=== PATIENT | male | born 1970 | race African-American/Black ===

== ENCOUNTER → 2017-07-31 | Outpatient (CLI) | payer OTHER, MEDICAID ==
[~2017-07-31] MED LIST: ALBUTEROL2.5 MG/31 INH; APAP500 PO; ASPIR 8181 MG PO; ATORVASTATIN CA40 MG PO; BRILINTA90 MG PO; CYMBALTA20 MG PO; ETODOLAC500 MG PO; FLEXERIL PO; HYDROCODON-ACE1 EACH PO; LEVAQUIN 500 M500 M2 PO; LIPITOR20 MG PO; LISINOPRIL2.5 M1 PO; LISINOPRIL20 MG PO; LYRICA 50 MG50 MG PO; LYRICA25 MG PO; MAGIC MOUTHWASH SWISH&SPIT; METFORMIN HCL500 MG PO; METOPROLOL TART25 MG PO; NAPROSYN500 MG PO; NEURONTIN 300300 M1 PO; NITROSTAT0.4 M1 SUBLING; NORCO 5-325 TA1 EACH PO; NORVASC 5 MG TAB5 MG PO; OXYCODONE HCL 55 MG PO; OXYCONTIN15 MG PO; OXYCONTIN20 M1 PO; PERCOCET 10-321 EAC1 PO; PERCOCET 5-3251 EACH PO; PREDNISONE 10 M10 M1 PO; PRILOSEC 20 MG20 MG PO; PROTONIX40 M1 PO; VENTOLIN HFA 1818 GM INH; ZANAFLEX4 MG PO; ZOLOFT100 MG PO
== END ==
LOC: M.RAD 11:00
DX: M54.12 Radiculopathy, cervical region (principal); M54.14 Radiculopathy, thoracic region; M46.02 Spinal enthesopathy, cervical region; M25.512 Pain in left shoulder; R07.89 Other chest pain

== ENCOUNTER 2017-10-27 01:52 | Inpatient (IN) | payer OTHER, MEDICAID ==
[2017-10-27] VITALS (8 sets, daily range): BP systolic 115–145; BP diastolic 64–85
[~2017-10-27] VITALS: Ht 185.4 cm; Wt 118.1 kg
[~2017-10-27 01:52] MED LIST changes: -ALBUTEROL2.5 MG/31 INH; -CYMBALTA20 MG PO; -LEVAQUIN 500 M500 M2 PO; -LISINOPRIL20 MG PO; -METFORMIN HCL500 MG PO; -OXYCONTIN20 M1 PO; -PERCOCET 10-321 EAC1 PO; -PREDNISONE 10 M10 M1 PO; -PROTONIX40 M1 PO; -VENTOLIN HFA 1818 GM INH
[2017-10-27 02:20] LABS: ABSOLUTE BASOPHILS 0.2 thou/uL (0.0-0.2); ABSOLUTE EOSINOPHILS 0.3 thou/uL (0.0-0.7); ABSOLUTE LYMPHOCYTES 3.2 thou/uL (0.8-5.3); ABSOLUTE MONOCYTES 0.8 thou/uL (0.0-1.2); ABSOLUTE NEUTROPHILS 14.8 thou/uL (1.6-8.1); BASOPHILS 0.8 %; EOSINOPHILS 1.6 %; HEMATOCRIT 45.9 % (42.0-52.0); HEMOGLOBIN 15.7 gm/dL (14.0-18.0); LYMPHOCYTES 16.6 %; MCH 29.4 pg (26.0-34.0); MCHC 34.3 g/dL (28.0-37.0); MCV 85.8 fL (80.0-100.0); MPV 9.1 fl. (7.2-11.1); NUCLEATED RBCS 0 /100WBC; PLATELET COUNT* 196 thou/uL (150-400); RBC 5.34 mil/uL (4.50-6.00); RDW-CV 15.2 % (10.5-14.5); WBC 19.3 thou/uL (4.0-11.0)
[2017-10-27 02:46] LABS: ANION GAP 10 mmol/L (7-16); BUN 7 mg/dL (7-18); CALCIUM 9.8 mg/dL (8.5-10.1); CHLORIDE 98 mmol/L (98-107); CO2 28 mmol/L (21-32); CREATININE 1.1 mg/dL (0.6-1.3); GLUCOSE 413 mg/dL (70-99); POTASSIUM 4.1 mmol/L (3.5-5.1); SODIUM 136 mmol/L (136-145)
[2017-10-27 03:00] LABS: ALBUMIN 3.8 g/dL (3.4-5.0); ALKALINE PHOSPHATASE 145 U/L (46-116); LIPASE 90 U/L (73-393); MAGNESIUM 1.8 mg/dL (1.8-2.4); NT-PRO BRAIN NAT PEPTIDE 30 pg/mL (<300); SGOT 9 U/L (15-37); SGPT 25 U/L (30-65); TOTAL BILIRUBIN 0.6 mg/dL (<0.1-1.0); TOTAL PROTEIN 7.4 g/dL (6.4-8.2); TROPONIN-I LEVEL <0.06 ng/mL (<0.06)
[2017-10-27 05:49] LABS: URINE BILIRUBIN NEGATIVE (Negative); URINE BLOOD NEGATIVE (Negative); URINE CLARITY CLEAR; URINE COLOR YELLOW; URINE GLUCOSE-RANDOM 3+ (Negative); URINE KETONES 2+ (Negative); URINE LEUKOCYTES-REFLEX NEGATIVE (Negative); URINE NITRITE-REFLEX NEGATIVE (Negative); URINE PROTEIN NEGATIVE (Negative); URINE SPECIFIC GRAVITY <= 1.005 (1.005-1.030); URINE UROBILINOGEN 0.2 E.U./dl (0.2-1.0)
--- NOTE | 2017-10-27 11:00 | NUR ---
DR SEVILLA PAGED RE ELEVATED HIGH BG. NO ORDERS RECEIVED AT THIS TIME
[2017-10-27] MEDS ORDERED: LISINOPRIL20 MG PO (12:10)
[2017-10-27] MEDS ORDERED: PERCOCET 10-321 EAC1 PO (12:10)
[2017-10-27] MEDS ORDERED: CYMBALTA20 MG PO (12:10)
[2017-10-27] MEDS ORDERED: FLEXERIL PO (12:10)
--- NOTE | 2017-10-27 13:08 | NUR ---
Pt came down to pre-op for Appendectomy and blood sugar is 310. Insulin Moderate sliding scale was reviewed and Insulin 16 units given in left arm based off standing order.
--- NOTE | 2017-10-27 14:48 | 2DMMODE ---
[place] [address] 2 D/M-MODE ECHOCARDIOGRAM Name: DAVY GIBSON Room: [address] IN [facility]#: [id number] Admission: 10/27/17 Attend Phys: Kalina Duque, Discharge: Date of : 72 Date of Service: 10/27/17 1448 Report #: [id number] THIS REPORT FOR: //name// APPROVED REPORT Study performed: 10/27/2017 09:30:52 EXAM: Comprehensive 2D, Doppler, and color-flow Echocardiogram Patient Location: In-Patient Room #: [facility] Status: routine BSA: 2.41 HR: 80 bpm BP: 115/67 mmHg Rhythm: NSR Other Information Study Quality: Good Indications Pre-Op CAD 2D Dimensions LVEF(%): 58.03 (>50%) IVSd: 10.90 (7-11mm) LVOT Diam: 19.66 (18-24mm) LVDd: 52.34 mm PWd: 10.22 (7-11mm) Ascending Ao: 33.05 (22-36mm) LVDs: 36.20 (25-40mm) Aortic Root: 32.82 mm Brown's LVEF: 58.03 % Volumes Left Atrial Volume (Systole) LA ESV Index: 19.60 mL/m2 Aortic Valve AoV Peak Dexter.: 1.69 m/s AO Peak Gr.: 11.38 mmHg LVOT Max P.66 mmHg AO Mean Gr.: 5.84 mmHg LVOT Mean P.22 mmHg LVOT Max V: 1.38 m/s AO V2 VTI: 29.52 cm LVOT Mean V: 0.80 m/s CANDI (VTI): 2.48 cm2 LVOT V1 VTI: 24.10 [place] [address] 2 D/M-MODE ECHOCARDIOGRAM Name: DAVY GIBSON Room: [address] IN .R.#: [id number] Admission: 10/27/17 Attend Phys: Kalina Duque, Discharge: Date of : 72 Date of Service: 10/27/17 1448 Report #: [id number] E/A Ratio: 0.85 MV Decel. Time: 217.55 ms MV E Max Dexter.: 0.80 m/s MV PHT: 63.09 ms MVA (PHT): 3.49 cm2 TDI E/Lateral E': 8.89 E/Medial E': 7.27 Medial E' Dexter.: 0.11 m/s Lateral E' Dexter.: 0.09 m/s Pulmonary Valve PV Peak Dexter.: 0.96 m/s PV Peak Gr.: 3.66 mmHg Tricuspid Valve TR Peak Gr.: 23.03 mmHg RVSP: 28.00 mmHg Left Ventricle The left ventricle is normal size. There is normal LV segmental wall motion. There is normal left ventricular wall thickness. Left ventricular systolic function is normal. The left ventricular ejection fraction is within the normal range. LVEF is 60%. Grade I - abnormal relaxation pattern. Right Ventricle The right ventricle is normal size. The right ventricular systolic function is normal. Atria The left atrium size is normal. The right atrium size is normal. Aortic Valve The aortic valve is normal in structure. No aortic regurgitation is present. There is no aortic valvular stenosis. Mitral Valve The mitral valve is normal in structure. There is no mitral valve regurgitation noted. No evidence of mitral valve stenosis. Tricuspid Valve The tricuspid valve is normal in structure. Trace tricuspid regurgitation. The RVSP is ____28___ mmHg. Pulmonic Valve The pulmonary valve is normal in structure[place] [address] 2 D/M-MODE ECHOCARDIOGRAM Name: GIBSONDAVY Room: [address] IN M.R.#: [id number] Admission: 10/27/17 Attend Phys: Kalina Duque, Discharge: Date of : 72 Date of Service: 10/27/17 1448 Report #: [id number] regurgitation. Great Vessels The aortic root is normal in size. IVC is normal in size and collapses with >50% inspiration Pericardium There is no pericardial effusion. <Conclusion> The left ventricle is normal size. There is normal left ventricular wall thickness. Left ventricular systolic function is normal. The left ventricular ejection fraction is within the normal range. LVEF is 60%. Grade I - abnormal relaxation pattern. The right ventricle is normal size. The left atrium size is normal. The aortic valve is normal in structure. The mitral valve is normal in structure. The tricuspid valve is normal in structure. Trace tricuspid regurgitation. The RVSP is ____28___ mmHg. IVC is normal in size and collapses with >50% inspiration There is no pericardial effusion. There is normal LV segmental wall motion. <ELECTRONICALLY SIGNED> By: Dayo Moore MD, FACC 10/27/17 1448 1448 1448 Dayo Moore MD, FACC /INF
--- NOTE | 2017-10-27 16:40 | NUR ---
REPORT GIVEN TO ANGE ON . PT'S AND BELONGINGS TAKEN TO ROOM 313
--- NOTE | 2017-10-27 17:54 | EKG ---
[place] [address] ELECTROCARDIOGRAM REPORT Name: GIBSONDAVY Room: [address] ADM IN M.R.#: [id number] Admission: 10/27/17 Attend Phys: Kalina Duque MD Discharge: Date of : 72 Report #: [id number] THIS REPORT FOR: //name// [facility] ED Test Date: 2017-10-27 Test Time: 01:59:27 Pat Name: DAVY GIBSON Department: Room: [facility] Gender: M Food Handler: BD : 1970 Requested By: Ede Szymanski Order Number: [id number] MD: Hamilton Jarvis Measurements Intervals [place] Rate: 78 P: 15 WA: 132 QRS: -8 QRSD: 102 T: 3 QT: 384 QTc: 438 Interpretive Statements Sinus rhythm Compared to ECG 05/09/2016 08:17:22 T-wave abnormality no longer present Electronically Signed On 10-27-2017 17:54:03 CDT by Hamilton Jarvis [email or web address] <ELECTRONICALLY SIGNED> By: Hamilton Jarvis MD, [facility] 10/27/17 1754 0159 0159 Hamilton Jarvis MD, [facility] /EPI
--- NOTE | 2017-10-27 17:54 | EKG ---
[place] [address] ELECTROCARDIOGRAM REPORT Name: GIBSONDAVY Room: [address] ADM IN M.R.#: [id number] Admission: 10/27/17 Attend Phys: Kalina Duque MD Discharge: Date of : 72 Report #: [id number] THIS REPORT FOR: //name// [facility] ED Test Date: 2017-10-27 Test Time: 05:06:27 Pat Name: DAVY GIBSON Department: Room: [facility] Gender: M Cmm Inspector: BD : 1970 Requested By: Ede Szymanski Order Number: [id number] MD: Hamilton aJrvis Measurements Intervals [place] Rate: 83 P: 52 TN: 132 QRS: -2 QRSD: 99 T: 1 QT: 374 QTc: 440 Interpretive Statements Sinus rhythm Probable left atrial enlargement Compared to ECG 05/09/2016 08:17:22 T-wave abnormality no longer present Electronically Signed On 10-27-2017 17:54:40 CDT by Hamilton Jarvis [email or web address] <ELECTRONICALLY SIGNED> By: Hamilton Jarvis MD, [facility] 10/27/17 1754 0506 0506 Hamilton Jarvis MD, [facility] /EPI
--- NOTE | 2017-10-27 18:25 | NUR ---
PT ADMITTED TO ROOM 313 THIS AFTERNOON, CAPNGRAPHY IN PLACE, ON 2LO2NC, VSS, DISCOMFORT TO ABDOMEN MANAGED WELL WITH IV AND ORAL PAIN MEDICATION, FREDDY ORAL FLUIDS WELL, NS INFUSING AT 100/HR VIA 20G LAC, DSGS TO ABD FROM LAP APPY C/D/I. ALFARO WITHOUT DIFF, FAMILY AT BEDSIDE, CALL LIGHT IN REACH, ORDERS REVIEWED. PLAN IS TO DISCHARGE TO HOME WHEN STABLE, POSSIBLY TOMORROW. PROGRESSING WELL TOWARD GOALS, CONT POC.
[2017-10-28 02:12] LABS: GLYCOHEMOGLOBIN (HGB A1C) 11.5 % (4.8-5.6)
[2017-10-28 03:42] VITALS: BP 127/76
--- NOTE | 2017-10-28 05:13 | NUR ---
PATIENT WITH SURGICAL DSG C/D/I ON ABDOMEN. PT VOIDS PER URINAL. PT WITH CAPNO PLUS 2 LITERS PER NC. PT C/O FENTANYL 50MCG IV NOT HOLDING PAIN; INCREASE TO 100MCG Q2H ORDERED. PT ABLE TO REST AFTER RECEIVING THIS. PT WITH BLOOD SUGAR AT 2100 OF 179; PT HAD BEEN NPO ALL DAY AND HAD ONE CUP OF BROTH. PT DID NOT WANT INSULIN. FLUIDS INFUSING PER DR ORDER. AT BEDSIDE. FREQUENTLY USED ITEMS AND CALL LIGHT WITHIN REACH. SIDERAILS UPX3. WILL CONTINUE TO MONITOR.
[2017-10-28 07:30] VITALS: BP 128/78
[2017-10-28 09:51] VITALS: BP 128/78
--- NOTE | 2017-10-28 10:47 | NUR ---
CM SPOKE TO THE PATIENT TO DISCUSS HOME SITUATION, DISCHARGE PLANNING, AND TO INFORM OF THE ROLE OF CM. PATIENT ALERT, ORIENTED, AND INDEPENDENT WITH ADL'S. PATIENT RESIDES AT HOME WITH SPOUSE AND SHE IS AT THE BEDSIDE. PATIENT USES A WALKER AND CANE FOR MOBILITY. PATIENT HAS NO HX OF HH OR SNF. PATIENT AND SPOUSE INFORMS THAT THEY WOULD LIKE HH AT D/C TO ASSIST WITH NEW DIAGNOSIS OF DIABETES AND MANAGEMENT. PATIENT REQUEST [facility]. CM SPOKE TO NATALI AT [facility] AND SHE INFORMS THAT [facility] WILL RETURN CALL TO INFORM IF THEY ARE IN NETWORK WITH THE PATIENTS INSURANCE. CM WILL REMAIN AVIALABLE TO ASSIST AND FOLLOW NEEDED.
[2017-10-28 15:52] VITALS: BP 120/70
--- NOTE | 2017-10-28 16:29 | NUR ---
PATIENT GIVEN DIABETIC EDUCATION THIS AM AND GLUCOSE MONITOR TEACHING. INSULIN GIVEN WITH MEALS WHEN REQUIRED. DIRECTOR OF CONSULTING SERVICES HERE THIS AFTERNOON FOR DIET TEACHING. PATIENT UPSET THIS AM ABOUT PATIENT DISCHARGE ORDERS. PATIENT ADVOCATE NOTIFIED AND DID COME SEE PATIENT. CARDIOLOGY NURSE HERE THIS AM AND PATIENT TO WAIT FOR DR. PALACIOS TO ROUND BEFORE DISCHARGE. OK WITH CARDIOLOGY AFTER ROUNDING TO DISCHARGE. PATIENT AND PATIENT STATED THEY WANTED PATIENT TO STAY ANOTHER NIGHT DUE TO PAIN NOT BEING CONTROLLED. PATIENT STATED TO DOCTORS AND OTHER STAFF MEMBERS ROUNDING ON PATIENT THAT HIS PAIN WAS "OUT OF CONTROL" AFTER MEDICATION GIVEN. THIS NURSE WOULD ROUND ON PATIENT AND ASK FOR PAIN TO BE RATED AND PATIENT STATED A 5/10 AND THAT PAIN AT THAT LEVEL WAS TOLERABLE FOR HIM AND REFUSED ANY OTHER PAIN MEDICATIONS OFFERED AT THAT TIME. PATIENT NOTED TO BE SLEEPING THIS AFTERNOON FOR APPROX 2 HOURS. IV SL. UP AD LEIDA.
[2017-10-28 21:35] VITALS: BP 129/84
[2017-10-29 05:12] LABS: ABSOLUTE BASOPHILS 0.1 thou/uL (0.0-0.2); ABSOLUTE EOSINOPHILS 0.3 thou/uL (0.0-0.7); ABSOLUTE LYMPHOCYTES 3.1 thou/uL (0.8-5.3); ABSOLUTE MONOCYTES 0.6 thou/uL (0.0-1.2); ABSOLUTE NEUTROPHILS 6.6 thou/uL (1.6-8.1); BASOPHILS 0.6 %; EOSINOPHILS 2.9 %; HEMATOCRIT 39.8 % (42.0-52.0); LYMPHOCYTES 29.1 %; MCH 29.1 pg (26.0-34.0); MCHC 33.9 g/dL (28.0-37.0); MCV 85.8 fL (80.0-100.0); MONOCYTES 5.2 %; MPV 9.4 fl. (7.2-11.1); NUCLEATED RBCS 0 /100WBC; PLATELET COUNT* 180 thou/uL (150-400); POLYS 62.2 %; RBC 4.64 mil/uL (4.50-6.00); RDW-CV 15.1 % (10.5-14.5); WBC 10.6 thou/uL (4.0-11.0)
[2017-10-29 05:31] LABS: ALBUMIN 2.8 g/dL (3.4-5.0); CALCIUM 8.6 mg/dL (8.5-10.1); MAGNESIUM 1.6 mg/dL (1.8-2.4); POTASSIUM 4.1 mmol/L (3.5-5.1); TOTAL BILIRUBIN 0.4 mg/dL (<0.1-1.0); TOTAL PROTEIN 6.1 g/dL (6.4-8.2)
[2017-10-29 05:36] LABS: HEMOGLOBIN 13.5 gm/dL (14.0-18.0)
--- NOTE | 2017-10-29 06:46 | NUR ---
PATIENT SLEPT PART OF THE NIGHT. IV REMAINS SALINE LOCKED. PATIENT WAS GIVEN PAIN MEDICINE THREE TIMES THIS SHIFT WITH GOOD RELIEF. PATIENT IS SUPPOSED TO BE DISCHARGED LATER TODAY. WILL CONTINUE TO MONITOR.
[2017-10-29 07:06] LABS: GLYCOHEMOGLOBIN (HGB A1C) 11.1 % (4.8-5.6)
[2017-10-29 07:30] VITALS: BP 125/66
[2017-10-29 10:47] VITALS: BP 128/78
[2017-10-29 10:57] VITALS: BP 128/78
--- NOTE | 2017-10-29 10:59 | NUR ---
QUITA faxed final orders for RN to [facility]. Pt to dc home with today. Pt already has needed DME. No other needs expressed.
--- NOTE | 2017-10-29 11:19 | S ---
[place] [address] SURGICAL PATH RPT PROCEDURE Name: DAVY HO Room: [address] ADM IN M.R.#: [id number] Admission: 10/27/17 Date of : 72 Discharge: Report #: [id number] Path Case #: [id number] PATHOLOGY REPORT COLLECTION DATE: 10/27/2017 RECEIVED DATE: 10/27/2017 SUBMITTING PHYS: Dr. Guanaco Kamara OTHER PHYS: Dr. Kalina Boone SPECIMEN(S) RECEIVED: A.Appendix * * * * * * * * * * * * FINAL DIAGNOSIS: Appendix: - Acute appendicitis, periappendicitis and serositis. (CRISTIAN:mml; 10/29/2017) PATHOLOGIST: Avel Disla M.D. REPORT ELECTRONICALLY SIGNED BY: Avel Disla M.D. DATE/TIME: 10/29/2017 11:18 * * * * * * * * * * * * GROSS PATHOLOGY: Received in formalin labeled "Davy Ho appendix," is an appendix measuring 6.8 cm in length and up to 1.3 cm in diameter with a large amount of attached mesoappendix. The serosal surface is pink-edwards in appearance with moderate vasculature. Sectioning reveals a pinpoint to patent lumen filled with a slight amount of fecal material. The specimen is submitted representatively as follows: A1 proximal margin and bisected tip A2 additional cross-sections of appendix. (CAA; 10/28/2017) CLINICAL HISTORY: Pre-op diagnosis: Abdominal pain Post-op diagnosis: Acute appendicitis INITIAL CPT CODE(S): A; 73271 Professional services performed by [facility] at [facility], [address] [place] [address] , [place] [address]. Technical services performed by [facility] at [address] [place] [address], [facility] [address], [place] [address]. [place] [address] SURGICAL PATH RPT PROCEDURE Name: DAVY HO Room: [address] IN [facility].#: [id number] Admission: 10/27/17 Date of : 72 Discharge: Report #: [id number] Path Case #: [id number] [facility] [address] [address] PHONE: [phone] DIRECTOR: Tra Ferrer M.D. * * * END OF REPORT * * *
[2017-10-29] MEDS ORDERED: OXYCODONE HCL 55 MG PO (11:23)
[2017-10-29] MEDS ORDERED: METFORMIN HCL500 MG PO (11:25)
--- NOTE | 2017-10-29 15:12 | NUR ---
PT DISCHARGED HOME WITH ALL BELONGINGS. PT ACKNOWLEGED DISCHARGE INSTRUCTIONS AND MEDICATIONS. RX SENT WITH PT. PT GIVEN PAIN MEDS ORDERED. DRESSINGS CDI. PT TOLERATED DIET.
--- NOTE | 2017-10-29 16:33 | CON ---
[address] [address] CONSULTATION Name: GIBSONDAVY Room: [address] IN M.R.#: [id number] Admission: 10/27/17 Attend Phys: Kalina Duque MD Discharge: 10/29/17 Date of : 72 Report #: [id number] THIS REPORT FOR: //name// CC: Td Duque DATE OF SERVICE: 10/27/2017 HISTORY OF PRESENT ILLNESS: The patient is a 47-year-old male with known coronary artery disease. He is status post non-ST segment elevation inferior infarction in 04/2016, interrupted by percutaneous coronary intervention to the posterior descending branch of the right coronary artery. He has noted some pain similar to his prior ischemic pain, though it is somewhat radicular in nature and there is a sharp shooting pain down the left arm, which is brought on by various activities. Stress testing was recommended, but that has not been completed. He presented this weekend with right lower quadrant severe discomfort and is felt to have acute appendicitis. He has not had any intercurrent pain in the chest or arm suggestive of ischemic pain during this acute hospitalization. He does have risk factors for coronary artery disease including tobacco abuse and weight excess. MEDICATIONS: Have included aspirin, atorvastatin, cyclobenzaprine, Flexeril, doxycycline, Lyrica, oxycodone, promethazine, Chantix and lisinopril. Risk factors for coronary artery disease include cigarette smoking, hypercholesterolemia and hypertension. FAMILY HISTORY: Coronary artery disease in one brother. SOCIAL HISTORY: The patient is disabled. He smokes 7-9 cigarettes per day. He is . FAMILY HISTORY: Remarkable for myocardial infarction in his brother. REVIEW OF SYSTEMS: CENTRAL NERVOUS SYSTEM: He denies convulsions or paralysis. GENERAL: There has been no weight change. RESPIRATORY: He notes cough. CARDIOVASCULAR: He describes a history of prior myocardial infarction and prior stenting. He notes some atypical left arm pain, which is more suggestive of neurologic or radicular discomfort. ENDOCRINE: He denies diabetes [place] [address] CONSULTATION Name: GIBSONDAVY Room: [address] IN [facility]#: [id number] Admission: 10/27/17 Attend Phys: Kalina Duque MD Discharge: 10/29/17 Date of : 72 Report #: [id number] GASTROINTESTINAL: There has been no nausea, vomiting or blood in his stools. GENITOURINARY: He denies dysuria. HEMATOLOGIC AND LYMPHATIC: There is no anemia. ALLERGIC AND IMMUNOLOGIC: He denies seasonal or medication allergies. PSYCHIATRIC: There is no history of depression or chronic anxiety. MUSCULOSKELETAL: He notes arthritic complaints. SKIN: He denies rash or hives. EYES: He wears glasses. ENT: He does have dentures. PHYSICAL EXAMINATION: GENERAL: Demonstrates an overweight, middle-aged male. VITAL SIGNS: Blood pressure is 140/70, pulse rate is 78 and respirations are 18 per minute. NECK: Jugular venous pressure is normal. Carotids are 1-2+. There is no thyromegaly. EYES: No scleral icterus. CHEST: Clear. CARDIAC: Reveals normal first and second heart sounds with a soft systolic murmur. ABDOMEN: Moderately obese and there is marked right lower quadrant tenderness. EXTREMITIES: Without edema with intact peripheral pulses. There is no clubbing or cyanosis. No deformity or arthritic changes are noted. LABORATORY DATA: Electrocardiogram reveals sinus rhythm, possible inferior wall scar, and nonspecific ST-T alterations are noted. IMPRESSION: 1. Probable acute appendicitis. 2. Coronary artery disease, status post myocardial infarction and prior stenting of the right coronary artery in 2016. 3. Atypical left arm discomfort, which is suggestive of a radicular pain. 4. Hypercholesterolemia. 5. Exogenous obesity. 6. Chronic pain syndrome. RECOMMENDATIONS: 1. Echocardiogram to be reviewed. It demonstrates normal global systolic function, estimated ejection fraction of 55-60% with subtle inferobasilar hypokinesis. The aortic and mitral valves appear normal. 2. Given the clinical presentation at present, I would recommend proceeding with the planned appendectomy as he has marked right lower quadrant discomfort and symptoms and clinical picture compatible with acute appendicitis. 3. Would recommend Lexiscan Cardiolite testing as previously recommended [place] [address] CONSULTATION Name: GIBSON,DAVY R Room: [address] IN M.R.#: [id number] Admission: 10/27/17 Attend Phys: Kalina Duque MD Discharge: 10/29/17 Date of : 72 Report #: [id number] Thank you for allowing us to see the patient in cardiovascular assessment. <ELECTRONICALLY SIGNED> By: Dayo Moore MD, FAC 10/29/17 1633 0941 [id number] Moore MD, FACC /nt
--- NOTE | 2017-11-19 09:47 | OP ---
[address] [address] OPERATIVE REPORT Name: DARLYN GIBSONTammie Menon Room: [address] IN M.R.#: [id number] Admission: 10/27/17 Attend Phys: Kalina Duque MD Discharge: 10/29/17 Date of : 72 Report #: [id number] THIS REPORT FOR: //name// CC: Td Duque DICTATED BY: Mainor Goodman DO PREOPERATIVE DIAGNOSIS: Acute appendicitis. POSTOPERATIVE DIAGNOSIS: Acute appendicitis. SURGEON: Guanaco Kamara DO RADIO ELECTRONICS TECHNICIAN: Mainor Goodman, PGY-1 OPERATION PERFORMED: Laparoscopic appendectomy. ANESTHESIA: General. ESTIMATED BLOOD LOSS: 20. SPECIMENS REMOVED: Appendix. COMPLICATIONS: None. DISPOSITION: PACU to a [facility]. HISTORY OF PRESENT ILLNESS: The patient is a pleasant 47-year-old male who presented to [facility] complaining of chest pain and shortness of breath that started earlier this morning. Chest pain radiated to his left arm. He reports changes to vision. He also reports some right lower quadrant abdominal pain, nausea without emesis and recent decreased appetite. He says his pain was localized to the right lower quadrant without any radiation. Does have a significant history of NSTEMI back in 2016 requiring PCI and stent placement. CT performed did show acute appendicitis. He was evaluated by Cardiology who determined that he was stable for surgery at this time. It was discussed that the risks of surgery included bleeding, infection, injury to surrounding structures, possibility of open procedure, risk of anesthesia, up to and including cardiopulmonary failure and . He acknowledged his understanding of risks and complications and agreed to proceed with surgery. DESCRIPTION OF PROCEDURE: The patient was then taken to the operating room after consent was obtained and the patient was laid in supine position. A 2 g of Ancef was given preoperatively. SCDs were applied to bilateral lower extremities. General anesthesia was initiated [place] [address] OPERATIVE REPORT Name: DAVY GIBSON Lynsey Room: [address] IN .R.#: [id number] Admission: 10/27/17 Attend Phys: Kalina Duque MD Discharge: 10/29/17 Date of : 72 Report #: [id number] patient was then prepped and draped in the normal sterile fashion. A timeout was performed confirming the patient and procedure. Supraumbilical incision was made in the midline using an 11 blade scalpel. Cautery was then used to dissect deep to the subcutaneous tissues to the fascia. Hemostasis was assured. The fascia was scored. Kochers were placed on either side of the fascia. Hemostat was used to bluntly enter to the abdomen. Once placement was confirmed, 2 stitches of 0 Vicryl were placed on either side of the fascia and the 10 mm Radha trocar was entered in the abdomen. Insufflation was initiated. Camera was placed into the abdomen and the abdomen was inspected. There were no obvious signs of peritonitis. Other intra-abdominal organs looked to be within normal limits. The patient was then placed into slight Trendelenburg and rotated to the left. Another trocar was placed suprapubically under direct visualization. Laparoscopic Jameson was entered and used to sweep the small bowel cephalad. The cecum was grasped and lifted and the appendix was easily visualized at that time. At this point, it was determined the patient did have acute appendicitis. A third trocar was then placed in the left lower quadrant under direct visualization. Harmonic scalpel was then used to dissect along the mesoappendix ensuring adequate hemostasis. Once the base of the appendix was reached, a 45 blue load stapler was then inserted into the abdomen and the base of the appendix was grasped. Stapler was fired and removed from the abdomen. EndoCatch bag was placed into the abdomen and the appendix was placed into the bag and removed. The staple line was then inspected for adequate hemostasis. Once hemostasis was ensured, the right lower quadrant was irrigated and suctioned. No bleeding was observed at this time. Suprapubic and left lower quadrant trocar were removed under direct visualization. Insufflation was let out of the abdomen and the staple line was again inspected as inflation was decreasing. No bleeding was seen. Hemostasis was ensured. The camera was removed from the abdomen and supraumbilical trocar site was removed along with the appendix. Fascia was then closed with 2 xawasf-gs-ehfed stitches of 0 Vicryl, 3-0 Vicryl was used to approximate the subcutaneous tissue of the supraumbilical midline incision, 4-0 Monocryl was used to close the skin in a simple interrupted subcuticular fashion on all the port sites. The patient tolerated the procedure well. He was awoken from anesthesia without any complication and transferred to PACU in a stable condition. All needle counts were correct. All sponge counts were correct. All instrument counts were correct. <ELECTRONICALLY SIGNED> By: Guanaco Kamara DO 11/19/17 0947 1457 [id number] Kamara DO /nt
== END 2017-10-29 14:45 | disposition home health service (06) | DRG 341 ==
LOC: M.ERS 01:52 → M.TBA-ER 04:36 → M.3W 04:36 → M.2W 04:36 → M.3W 16:56
PROVIDERS: Emergency Medicine Emergency Medical Services; Internal Medicine; Surgery; ADMIT Internal Medicine
PROC: 0DTJ4ZZ Resection of Appendix, Percutaneous Endoscopic Approach (ICD-10-PCS; principal; 2017-10-27)
DX: K35.80 Unspecified acute appendicitis (principal); E11.00 Type 2 diabetes mellitus with hyperosmolarity without nonketotic hyperglycemic-hyperosmolar coma (NKHHC); R65.10 Systemic inflammatory response syndrome (SIRS) of non-infectious origin without acute organ dysfunction; I25.110 Atherosclerotic heart disease of native coronary artery with unstable angina pectoris; Z79.4 Long term (current) use of insulin; I10 Essential (primary) hypertension; E78.00 Pure hypercholesterolemia, unspecified; E66.09 Other obesity due to excess calories; G89.4 Chronic pain syndrome; F17.210 Nicotine dependence, cigarettes, uncomplicated; M54.9 Dorsalgia, unspecified; R73.02 Impaired glucose tolerance (oral); E11.9 Type 2 diabetes mellitus without complications; E11.65 Type 2 diabetes mellitus with hyperglycemia; I25.2 Old myocardial infarction; Z79.899 Other long term (current) drug therapy; Z79.82 Long term (current) use of aspirin; Z82.49 Family history of ischemic heart disease and other diseases of the circulatory system; Z95.5 Presence of coronary angioplasty implant and graft; Z72.0 Tobacco use; Z68.34 Body mass index [BMI] 34.0-34.9, adult

== ENCOUNTER 2018-04-13 13:36 | Inpatient (IN) | payer MEDICARE, OTHER ==
[~2018-04-13] VITALS: Ht 185.4 cm; Wt 124.7 kg
[~2018-04-13 13:36] MED LIST changes: +CYMBALTA20 MG PO; +LISINOPRIL20 MG PO; +METFORMIN HCL500 MG PO; +PERCOCET 10-321 EAC1 PO
[2018-04-13 13:42] VITALS: BP 164/99
[2018-04-13 14:09] LABS: ABSOLUTE BASOPHILS 0.1 thou/uL (0.0-0.2); ABSOLUTE EOSINOPHILS 0.3 thou/uL (0.0-0.7); ABSOLUTE LYMPHOCYTES 1.4 thou/uL (0.8-5.3); ABSOLUTE MONOCYTES 0.7 thou/uL (0.0-1.2); ABSOLUTE NEUTROPHILS 8.4 thou/uL (1.6-8.1); BASOPHILS 0.5 %; EOSINOPHILS 2.9 %; HEMATOCRIT 40.8 % (42.0-52.0); HEMOGLOBIN 13.7 gm/dL (14.0-18.0); LYMPHOCYTES 13.1 %; MCH 29.3 pg (26.0-34.0); MCHC 33.5 g/dL (28.0-37.0); MCV 87.5 fL (80.0-100.0); MONOCYTES 6.8 %; MPV 8.4 fl. (7.2-11.1); NUCLEATED RBCS 0 /100WBC; PLATELET COUNT* 196 thou/uL (150-400); POLYS 76.7 %; RBC 4.66 mil/uL (4.50-6.00); RDW-CV 16.3 % (10.5-14.5); WBC 10.9 thou/uL (4.0-11.0)
[2018-04-13 14:14] LABS: ANION GAP 10 mmol/L (7-16); BUN 4 mg/dL (7-18); CALCIUM 8.8 mg/dL (8.5-10.1); CHLORIDE 104 mmol/L (98-107); CO2 28 mmol/L (21-32); CREATININE 0.8 mg/dL (0.6-1.3); GLUCOSE 127 mg/dL (70-99); POTASSIUM 3.9 mmol/L (3.5-5.1); SODIUM 142 mmol/L (136-145)
[2018-04-13 14:17] LABS: APTT 32.8 Seconds (25.0-31.3); PROTIME 10.6 Seconds (9.20-11.50)
[2018-04-13 14:25] LABS: ALBUMIN 3.6 g/dL (3.4-5.0); ALKALINE PHOSPHATASE 86 U/L (46-116); NT-PRO BRAIN NAT PEPTIDE 91 pg/mL (<300); SGOT 15 U/L (15-37); SGPT 26 U/L (30-65); TOTAL BILIRUBIN 0.8 mg/dL (<0.1-1.0); TOTAL PROTEIN 7.3 g/dL (6.4-8.2); TROPONIN-I LEVEL <0.06 ng/mL (<0.06)
[2018-04-13 15:03] LABS: BE 0 mmol/L (-2 to +3); HCO3 24.6 mmol/L (22.0-26.0); pH 7.407 (7.340-7.450)
[2018-04-13 15:07] LABS: PO2 35.4 mmHg (75.0-100.0)
--- NOTE | 2018-04-13 16:19 | EKG ---
[place] [address] ELECTROCARDIOGRAM REPORT Name: DAVY GIBSON Room: [place] [address] ADM IN .R.#: [id number] Admission: 04/13/18 Attend Phys: Kalina Duque MD Discharge: Date of : 72 Report #: [id number] THIS REPORT FOR: //name// [facility] ED Test Date: 2018-04-13 Test Time: 13:47:52 Pat Name: DAVY GIBSON Department: Room: [facility] Gender: M Die Operator: MS : 1970 Requested By: Yoni Adames Order Number: [id number] MD: Dayo Moore Measurements Intervals [place] Rate: 102 P: 65 NC: 133 QRS: 4 QRSD: 84 T: 7 QT: 336 QTc: 438 Interpretive Statements Sinus tachycardia Borderline T wave abnormalities Compared to ECG 10/27/2017 05:06:27 T-wave abnormality now present Sinus rate has increased Electronically Signed On 04-13-2018 16:19:23 CDT by Dayo Moore [email or web address] <ELECTRONICALLY SIGNED> By: Dayo Moore MD, FACC 04/13/18 1619 1347 1347 Dayo Moore MD, [facility] /EPI
[2018-04-13 18:19] VITALS: BP 151/83
[2018-04-13 18:44] VITALS: BP 157/83
[2018-04-13 20:00] VITALS: BP 159/83
[2018-04-14] VITALS: BP 173/72
[2018-04-14 02:23] LABS: HEMATOCRIT 40.8 % (42.0-52.0); HEMOGLOBIN 13.6 gm/dL (14.0-18.0); MCH 29.4 pg (26.0-34.0); MCHC 33.4 g/dL (28.0-37.0); MCV 87.9 fL (80.0-100.0); MPV 8.5 fl. (7.2-11.1); RBC 4.64 mil/uL (4.50-6.00); RDW-CV 16.3 % (10.5-14.5); WBC 9.9 thou/uL (4.0-11.0)
[2018-04-14 02:42] LABS: ALBUMIN 3.4 g/dL (3.4-5.0); CALCIUM 8.9 mg/dL (8.5-10.1); CREATININE 1.1 mg/dL (0.6-1.3); MAGNESIUM 1.7 mg/dL (1.8-2.4); POTASSIUM 4.7 mmol/L (3.5-5.1); TOTAL BILIRUBIN 0.4 mg/dL (<0.1-1.0); TOTAL PROTEIN 6.8 g/dL (6.4-8.2)
[2018-04-14 04:00] VITALS: BP 156/69
[2018-04-14 06:13] LABS: BE 0.5 mmol/L (-2 to +3); HCO3 24.8 mmol/L (22.0-26.0); PCO2 38.8 mmHg (35.0-45.0); PO2 60.9 mmHg (75.0-100.0); pH 7.423 (7.340-7.450)
[2018-04-14 08:00] VITALS: BP 163/96
[2018-04-14 12:00] VITALS: BP 159/83
[2018-04-14 15:30] VITALS: BP 141/77
[2018-04-14 20:00] VITALS: BP 138/70
[2018-04-15] VITALS: BP 136/79
[2018-04-15] MEDS ORDERED: OXYCONTIN20 M1 PO (03:01)
[2018-04-15 04:00] VITALS: BP 115/60
[2018-04-15 05:25] LABS: HEMATOCRIT 40.1 % (42.0-52.0); HEMOGLOBIN 13.2 gm/dL (14.0-18.0); MCH 29.1 pg (26.0-34.0); MCV 88.1 fL (80.0-100.0); MPV 8.5 fl. (7.2-11.1); RBC 4.55 mil/uL (4.50-6.00); RDW-CV 16.5 % (10.5-14.5)
[2018-04-15 05:51] LABS: CALCIUM 9.4 mg/dL (8.5-10.1); CREATININE 1.1 mg/dL (0.6-1.3); MAGNESIUM 2.2 mg/dL (1.8-2.4); POTASSIUM 5.1 mmol/L (3.5-5.1)
[2018-04-15 08:00] VITALS: BP 150/80
--- NOTE | 2018-04-15 09:11 | CON ---
[address] [address] CONSULTATION Name: DARLYN GIBSONTammie Menon Room: [address] M.R.#: [id number] Admission: 04/13/18 Attend Phys: Kalina Duque MD Discharge: Date of : 72 Report #: [id number] THIS REPORT FOR: //name// CC: Td Duque TYPE OF REPORT: Cardiology consultation. INDICATION: Chest pain. HISTORY OF PRESENT ILLNESS: The patient is a very pleasant 48-year-old gentleman who has a history of coronary artery disease with myocardial infarction in April of 2016, at which time he had a 90% stenosis of the distal PDA for which he had a single drug-eluting stent placed. No other significant stenoses were noted. EF was 55%. He presented to the hospital with intractable coughing and chest discomfort with cough. Chest x-ray suggested bilateral lower lobe infiltrate. He is coughing green sputum. He denies any exertional chest pain. He is not having significant shortness of breath at rest. He denies orthopnea or paroxysmal nocturnal dyspnea. Troponins are less than 0.06. EKG shows sinus rhythm with no significant ST or T-wave abnormalities. PAST MEDICAL HISTORY: 1. Coronary artery disease with previous percutaneous coronary intervention as outlined above. 2. Essential hypertension. 3. Hyperlipidemia. 4. History of tobacco use. 5. Obesity. 6. Chronic pain syndrome. 7. Chronic back pain. 8. Debility due to chronic back pain. PAST SURGICAL HISTORY: 1. Back surgery x 2. 2. Neck and spinal surgery remotely. SOCIAL HISTORY: The patient smokes half a pack of cigarettes daily. Denies use of alcohol. FAMILY HISTORY: Noncontributory. PHYSICAL EXAMINATION: VITAL SIGNS: Stable. Blood pressure 160/90 and pulse 110 [place] [address] CONSULTATION Name: DAVY GIBSON Room: [address] IN [facility]#: [id number] Admission: 04/13/18 Attend Phys: Kalina Duque MD Discharge: Date of : 72 Report #: [id number] GENERAL: This is a pleasant gentleman who is in no distress. Mood and affect appropriate. HEENT: Extraocular muscles intact. Mucous membranes are moist. NECK: Shows no jugular venous distention. There are no carotid bruits. CHEST: Reveals diffuse wheezes throughout. CARDIOVASCULAR: Reveals a regular rhythm with a slightly tachycardic without gallop or murmur. ABDOMEN: Reveals normal bowel sounds. The abdomen is soft and nontender. EXTREMITIES: Shows no edema. Peripheral pulses are 2+ and easily palpable. SKIN: Warm and dry. RADIOLOGICAL DATA: A 12-lead EKG shows sinus rhythm with no significant ST or T-wave abnormalities. Chest x-ray shows possible patchy basilar infiltrates. LABORATORY DATA: Labs are reviewed. Sodium 140, potassium 4.7, chloride 103, bicarb 25, BUN 9, creatinine 1.1 and serum glucose 295. LFTs within normal limits. Calcium 8.9, total protein 6.8 and albumin 3.4. Troponin less than 0.06 on 3 separate occasions. NT-pro-BNP 91. White blood cell count 9.9; hemoglobin 13.6 and platelet count 186,000. IMPRESSION AND RECOMMENDATIONS: 1. Atypical chest pain. The patient does not have any symptoms to suggest angina or acute coronary syndrome. His labs and EKGs are unremarkable. We would not pursue further cardiac workup at this time. 2. Upper respiratory infection as outlined above. The patient is on antibiotics, IV Solu-Medrol and breathing treatments. We would continue treatment per primary care physician and Pulmonology. 3. Hypertension. Blood pressure moderately elevated at present. Continue lisinopril and consider addition of beta perez for blood pressure control. 4. Hyperlipidemia. Continue atorvastatin at current dose. <ELECTRONICALLY SIGNED> By: Hamilton Jarvis MD, FACC 04/15/18 0911 1226 [id number] Jarvis MD, FACC /nt
[2018-04-15 10:55] VITALS: BP 150/80
[2018-04-15] MEDS ORDERED: PREDNISONE 10 M10 M1 PO (11:33)
[2018-04-15] MEDS ORDERED: VENTOLIN HFA 1818 GM INH (11:34)
[2018-04-15] MEDS ORDERED: LEVAQUIN 500 M500 M2 PO (11:35)
[2018-04-15] MEDS ORDERED: PROTONIX40 M1 PO (11:36)
[2018-04-15] MEDS ORDERED: ALBUTEROL2.5 MG/31 INH (12:15)
== END 2018-04-15 12:23 | disposition home or self-care (01) | DRG 193 ==
LOC: M.ERS 13:36 → M.2W 14:26 → M.TBA-ER 14:26 → M.2W 18:26
PROVIDERS: Family Medicine; ADMIT Internal Medicine
DX: J15.9 Unspecified bacterial pneumonia (principal); J96.01 Acute respiratory failure with hypoxia; F17.210 Nicotine dependence, cigarettes, uncomplicated; I25.10 Atherosclerotic heart disease of native coronary artery without angina pectoris; E78.5 Hyperlipidemia, unspecified; R07.89 Other chest pain; G89.4 Chronic pain syndrome; I10 Essential (primary) hypertension; I25.2 Old myocardial infarction; Z95.5 Presence of coronary angioplasty implant and graft; Z79.84 Long term (current) use of oral hypoglycemic drugs; Z79.899 Other long term (current) drug therapy; Z82.49 Family history of ischemic heart disease and other diseases of the circulatory system

== ENCOUNTER 2021-07-16 18:14 | Emergency (ER) | payer MEDICARE, OTHER ==
[~2021-07-16] VITALS: Ht 185.4 cm; Wt 100.7 kg
[~2021-07-16 18:14] MED LIST changes: +ALBUTEROL2.5 MG/31 INH; +LEVAQUIN 500 M500 M2 PO; +OXYCONTIN20 M1 PO; +PREDNISONE 10 M10 M1 PO; +PROTONIX40 M1 PO; +VENTOLIN HFA 1818 GM INH
[2021-07-16] MEDS ORDERED: TESSALON PERLE100 MG PO (20:03)
[2021-07-16] MEDS ORDERED: PROAIR HFA8.5 GM INH (20:03)
[2021-07-16 20:11] VITALS: BP 137/68
--- NOTE | 2021-07-17 10:39 | EKG ---
[place] [address] ELECTROCARDIOGRAM REPORT Name: DAVY GIBSON Room: [facility]#: [id number] Admission: 07/16/21 Attend Phys: Discharge: 07/16/21 Date of : 72 Date of Service: 07/16/21 1836 Report #: [id number] THIS REPORT FOR: //name// [facility] ED Test Date: 2021-07-16 Test Time: 18:36:53 Pat Name: DAVY GIBSON Department: Room: Gender: Scraper Tender: : 1970 Requested By: Shaq Rivas Order Number: [id number] MD: Hamilton Jarvis Measurements Intervals [place] Rate: 77 P: 63 HI: 119 QRS: 5 QRSD: 94 T: -14 QT: 390 QTc: 442 Interpretive Statements Sinus rhythm Borderline short HI interval Left ventricular hypertrophy, by voltage Nonspecific T abnormalities, inferior leads Baseline wander in lead(s) III,aVL,V6 Compared to ECG 04/13/2018 13:47:52 Left ventricular hypertrophy now present Sinus tachycardia no longer present T-wave abnormality still present Electronically Signed On 07-17-2021 10:38:56 ONLINE TRADER by Hamilton Jarvis [email or web address] <ELECTRONICALLY SIGNED> By: Hamilton Jarvis MD, FAC 07/17/21 1038 1836 1836 Hamilton Jarvis MD, [facility] /EPI
== END 2021-07-16 20:12 | disposition home or self-care (01) ==
LOC: M.ERS 18:14
DX: R05.9 Cough, unspecified (principal); Z20.822 Contact with and (suspected) exposure to COVID-19; R50.9 Fever, unspecified; R06.02 Shortness of breath; I10 Essential (primary) hypertension; E11.9 Type 2 diabetes mellitus without complications; K21.9 Gastro-esophageal reflux disease without esophagitis; I25.2 Old myocardial infarction; F17.210 Nicotine dependence, cigarettes, uncomplicated; Z90.49 Acquired absence of other specified parts of digestive tract; Z95.5 Presence of coronary angioplasty implant and graft; Z79.82 Long term (current) use of aspirin; Z79.899 Other long term (current) drug therapy; Z79.2 Long term (current) use of antibiotics